=== PATIENT | male | born 1970 | race Caucasian/White ===

== ENCOUNTER 2018-08-07 01:08 | Emergency (ER) | payer OTHER ==
--- NOTE | 2018-08-07 01:40 | ED Physician Documentation ---
PD HPI UPPER EXT INJURY - Stated complaint Stated Complaint: R MID FINGER INJ - Chief complaint Chief Complaint: Ext Problem - History obtained from History obtained from: Patient - History of Present Illness Location: Right, Finger (middle finger with dorsal puncture wound from screw. No deformity. Able to extend finger with pain, but is strong against resistance. He was putting in drywall screw and it slipped and went into dorsal PIP knuckle area. He was able to keep working with it but sore, and has gotten more painful with movement through the day. No numbness.) Type of injury: Puncture wound Where injury occurred: Home Timing - onset: Today Timing - details: Abrupt onset, Still present (had gotten worse the past few hours, with pain into wrist upon ROM of the finger.) Improved by: Rest Worsened by: Moving, Palpating Associated symptoms: Swelling. No: Weakness, Numbness Similar symptoms before: Has not had sx before Recently seen: Not recently seen Review of Systems Neurologic: denies: Focal weakness, Numbness, Near syncope PD PAST MEDICAL HISTORY - Past Medical History Past Medical History: No Neuro: None - Past Surgical History Past Surgical History: Yes General: Hiatal hernia repair - Present Medications Home Medications: Ambulatory Orders Medication Instructions Recorded Confirmed Doxycycline Hyclate 100 mg PO BID #14 capsule 08/07/18 Hydrocodone/Acetaminophen [Perry 1 each PO Q6H PRN #12 tablet 08/07/18 5-325 Tablet] Naproxen 500 mg PO BID #14 tablet 08/07/18 lamoTRIgine [LaMICtal] 25 mg PO DAILY 08/07/18 08/07/18 - Allergies Allergies/Adverse Reactions: Allergies Allergy/AdvReac Type Severity Reaction Status Date / Time No Known Drug Allergies Allergy Verified 05/11/13 17:28 - Social History Does the pt smoke?: No Smoking Status: Never smoker Does the pt drink ETOH?: No Does the pt have substance abuse?: No - Immunizations Immunizations are current?: Yes - POLST Patient has POLST: Yes PD ED PE NORMAL - Vitals Vital signs reviewed: Yes - General General: Alert and oriented X 3, Well developed/nourished - Derm Derm: Normal color, Warm and dry - Extremities Extremities: Other (dorsal right middle finger with small puncture wound without obvious FB over the PIP joint. Able to extend finger against resistance, but hurts with extension. ) - Neuro Neuro: Alert and oriented X 3, No motor deficit, No sensory deficit Results - Vitals Vitals: Vital Signs - 24 hr 08/07/18 08/07/18 01:11 02:32 Temperature 36.4 C L Heart Rate 57 L 60 Respiratory 16 16 Rate Blood Pressure 130/82 H 137/88 H O2 Saturation 97 97 Oxygen O2 Source Room air - Rads (name of study) right middle finger Radiology: Prelim report reviewed, EMP read contemporaneously (no fractures nor FBs. ), See rad report PD MEDICAL DECISION MAKING - ED course Complexity details: considered differential, d/w patient Departure - Departure Disposition: Home, Self Care Clinical Impression: Puncture wound of finger Qualifiers: Encounter type: initial encounter Qualified Code(s): S61.239A - Puncture wound without foreign body of unspecified finger without damage to nail, initial encounter Condition: Stable Record reviewed to determine appropriate education?: Yes Instructions: ED Wound Puncture General Follow-Up: SIMONE OSPINA MD [Primary Care Provider] - Prescriptions: Doxycycline Hyclate 100 mg PO BID #14 capsule Hydrocodone/Acetaminophen [Perry 5-325 Tablet] 1 each PO Q6H PRN #12 tablet PRN Reason: Pain Naproxen 500 mg PO BID #14 tablet Comments: There is no sign of bony involvement on your x-ray. It does sound that you injured the tendon with some inflammation to it. It does not seem torn. I would do protected motion with the splint or guarded activity for several days until the pain is gone. It could take a week or 2 for the tendon to feel heal up strong. I have some gentle range of motion of the finger periodically so it does not stiffen up as it healing. Use some anti-inflammatories such as naproxen or ibuprofen. To that add Tylenol or hydrocodone if needed for pain short-term. Doxycycline antibiotic twice daily for 5 to 7 days to reduce the chance of infection. Recheck if not improved over the next few days. Discharge Date/Time: 08/07/18 02:32
[2018-08-07] MEDS ORDERED: HYDROcod/ACET 5/325 Prepack 4 PO STA (01:55)
[2018-08-07] MEDS ORDERED: IBUPROFEN 600 MG TABLET PO STA (01:55)
[2018-08-07] MEDS ORDERED: ACETAMINOPHEN 325 MG TABLET PO STA (01:55)
[2018-08-07] MEDS ORDERED: DOXYCYCLINE 100 MG TABLET PO STA (01:58)
--- NOTE | 2018-08-07 02:19 | XRAY Report ---
Reason: middle finger injury, screw into PIP joint Procedure Date: 08/07/2018 Accession Number: [id number] / [id number] Procedure: XR - Finger(s) RT CPT Code: FULL RESULT: EXAM: RIGHT/LEFT 1st/2nd/3rd/4th/5th DIGIT RADIOGRAPHY EXAM DATE: 08/07/2018 02:07 AM. CLINICAL HISTORY: Middle finger injury, screw into PIP joint. COMPARISON: XR FINGER MIN 2 VIEWS 12/06/2011 6:09 PM. TECHNIQUE: 3 views. FINDINGS: Bones: No acute fractures. Previous healed fracture of the distal tuft of the fourth digit. Joints: Normal. No subluxations. Soft Tissues: No radiopaque foreign bodies. IMPRESSION: No evidence for acute fractures. [facility]
[2018-08-07 02:32] VITALS: BP 137/88
== END 2018-08-07 02:32 | disposition home or self-care (01) ==
LOC: ED 01:08
DX: S61.232A Puncture wound without foreign body of right middle finger without damage to nail, initial encounter (principal); W26.8XXA Contact with other sharp object(s), not elsewhere classified, initial encounter; Y93.H3 Activity, building and construction; Y92.009 Unspecified place in unspecified non-institutional (private) residence as the place of occurrence of the external cause
CPT/HCPCS: 73140; 99283; A9270